=== PATIENT | female | born 1995 | race Caucasian/White ===

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

== ENCOUNTER 2017-02-11 10:45 | Outpatient (RCR) | payer OTHER ==
[~2017-02-11 10:45] MED LIST: NORCOTAB PO
== END 2017-02-19 ==
LOC: M PT 10:45
PROVIDERS: ATTEND Orthopaedic Surgery
DX: S92.351D Displaced fracture of fifth metatarsal bone, right foot, subsequent encounter for fracture with routine healing (principal); X58.XXXD Exposure to other specified factors, subsequent encounter; Y93.9 Activity, unspecified; Y92.9 Unspecified place or not applicable; Y99.8 Other external cause status

== ENCOUNTER → 2017-03-30 | Outpatient (CLI) | payer OTHER ==
[2017-03-30 18:50] LABS: FREE T4 1.08 NG/DL (0.78-1.33)
[2017-03-30 19:02] LABS: PROLACTIN 7.6 NG/ML
[2017-03-30 19:42] LABS: HIV 1&2 SCREEN CENTAUR NEGATIVE (NEGATIVE)
[2017-04-01 10:53] LABS: HEPATITIS B SURFACE ANTIGEN NEGATIVE (NEGATIVE)
[2017-04-01 11:12] LABS: HEPATITIS C VIRUS ABY INDEX 0.1 INDEX (<0.8)
[2017-04-01 11:13] LABS: HEPATITIS B CORE ANTIBODY IGM NEGATIVE (NEGATIVE)
[2017-04-01 11:14] LABS: HEPATITIS A ANTIBODY IGM NEGATIVE (NEGATIVE)
[2017-04-03 00:06] LABS: 17 HYDROXY PROGESTERONE 49 ng/dL (.); DEHYDROEPIANDROSTERONE SULFATE 321.7 ug/dL (110.0-431.7); TESTOSTERONE FREE (DIRECT) 1.6 pg/mL (0.0-4.2)
== END ==
LOC: M LAB 17:32
DX: N91.2 Amenorrhea, unspecified (principal); Z11.3 Encounter for screening for infections with a predominantly sexual mode of transmission
CPT/HCPCS: 84146